=== PATIENT | female | born 1945 | race Caucasian/White ===

== ENCOUNTER 2016-12-06 08:29 | Outpatient (CLI) | payer MEDICARE, BC ==
[~2016-12-06] VITALS: Ht 152.4 cm; Wt 44.5 kg
--- NOTE | ~2016-12-06 | HEMODYNAMI ---
PATIENT:CLARENCE RAMOS MEDICAL RECORD: [id number] : 43 LOCATION:D.CAT ADMISSION DATE: 12/06/16 Generatedon:12/06/201611:31 Patient name: CLARENCE RAMOS Patient #: [id number] SSN: : 1945 Date of study: 12/06/2016 Page: Of Hemodynamic Procedure Report Patient Data Patient Demographics Procedure consent was obtained First Name: CLARENCE Gender: Female Last Name: RICHARD : 1945 Middle Initial: CARLIN Age: 70 year(s) Patient #: [id number] Race: Unknown Additional ID: [id number] Contact details [address]: [address] [place] [address] State: [place] City: [place] Zip code: [address] Past Medical History Allergies Allergen Reaction Date Comments Reported Sulfa drugs 08/05/2015 Other allergy 12/06/2016 Sulfa, Clindamycin Admission Admission Data Admission Date: 12/06/2016 Admission Time: 8:29 Admit Source: Other Height (in.): 60 BSA: 1.38 (m2) Height (cm.): 152.4 BMI: 19.16 (kg/m2) Weight (lbs.): 98.11 Weight (kg.): 44.5 Procedure Procedure Types Cath Procedure Diagnostic Procedure LHC LHC w/Coronaries w/Grafts Miscellaneous Procedures Moderate Sedation up to 15 minutes Procedure Description Procedure Date Procedure Date: 12/06/2016 Procedure Start Time: 11:19 Procedure End Time: 11:27 Procedure Staff Name Function Lamar Torres RT Scrub Ronny Krause MD Performing Physician Fina Estrada RN Nurse Joseph Robins RT Monitor Procedure Data Cath Procedure Fluoroscopy Diagnostic fluoroscopy Total fluoroscopy Time: 1.1 time: 1.1 min min Diagnostic fluoroscopy Total fluoroscopy dose: 125 dose: 125 mGy mGy Contrast Material Contrast Material Type Amount (ml) Isovue 300 51 Entry Location Entry Primary Successful Side Size Upsize Upsize Entry Closure Succes sful Closure Location (Fr) 1 (Fr) 2 (Fr) Remarks Device Remarks Femoral Right 5 Fr Exoseal artery Estimated blood loss: 5 ml Diagnostic catheters Device Type Used For End Catheter Placement Cordis 5Fr Pigtail Procedure Catheter (MP) Cordis 5Fr JL 4.0 Procedure Catheter (MP) Diagnostic Infinity 5Fr Procedure AR 2 MOD catheter Procedure Complications No complications Procedure Medications Medication Administration Route Dosage Oxygen NC 2 l/min Heparin Flush Bag added to field 2 bags (1000units/500ml NS) Lidocaine 2% added to field 20 Fentanyl I.V. 50 mcg Versed I.V. 1 mg Fentanyl I.V. 50 mcg Versed I.V. 1 mg Versed I.V. 0.5 mg Hemodynamics Rest BSA: 1.38 (m2) O2 Consumption: Estimated: 119.26 (ml/min) O2 Consumption indexed : Estimated:86.42 (ml/min/m) Heart Rate: 56 (bpm) Snapshots Pre Cath Intra NCS Post Cath Vital Signs Time Heart Resp SPO2 etCO2 [id number] NIBP Rhythm Pain Sedation Rate (ipm) (%) (mmHg) (mmHg) (mmHg) Status Level (bpm) 11:07:12 57 16 100 0 0 117/64(88) NSR 0 (11) 10(A) , No pain 11:11:22 57 18 100 0 0 119/65(86) NSR 0 (11) 10(A) , No pain 11:15:36 55 17 100 0 0 116/57(86) NSR 0 (11) 10(A) , No pain 11:19:46 66 20 100 0 0 120/63(92) NSR 0 (11) 9(A) , No pain 11:23:58 59 19 100 0 0 125/59(96) NSR 0 (11) 9(A) , No pain Medications Time Medication Route Dose Verified Delivered Reason Notes Effec tiveness by by 10:59:39 Oxygen NC 2 Fina Fina used for l/min Estrada Estrada lacing string cutter RN 10:59:47 Heparin Flush added 2 Fina Fina used for Bag to bags Estrada Estrada procedure (1000units/500ml field RN RN NS) 10:59:56 Lidocaine 2% added 20ml Fina Fina used for to vial Estrada Estrada procedure field RN RN 11:16:36 Fentanyl I.V. 50 Fina Fina for mcg Estrada Estrada sedation RN RN 11:16:42 Versed I.V. 1 mg Fina Fina for Estrada Estrada sedation RN RN 11:18:38 Fentanyl I.V. 50 Fina Fina for mcg Estrada Estrada sedation RN RN 11:18:41 Versed I.V. 1 mg Fina Fina for Estrada Estrada sedation RN RN 11:21:46 Versed I.V. 0.5 Fina Fina for mg Estrada Estrada sedation RN ticker installer Log Time Note 10:40:20 Fina Estrada RN sent for patient. Start room use. 10:43:36 Diagnostic Cath status Elective 10:43:39 Time tracking: Regular hours 10:43:42 Plan of Care:Hemodynamics will remain stable., Cardiac rhythm will remain stable., Comfort level will be maintained., Respiratory function will remain adequate., Patient/ family verbilizes understanding of procedure., Procedure tolerated without complication., Recovers from procedure without complications.. 10:49:46 Patient received from Pre/Post Procedure Room to [facility] 1 Alert and oriented. Tansferred to table in Supine position. 10:49:48 Warm blankets applied, and magno hugger turned on for patient comfort. 10:49:49 Correct patient and procedure confirmed by team. 10:49:50 ECG and BP/O2 sat monitors applied to patient. 10:49:51 Signed procedure consent form obtained from patient. 10:50:00 H&P Date Dictated: 12/01/2016 Emergent; H&P N/A, Within 30 days and on chart.. 10:59:39 Oxygen 2 l/min NC was administered by Fina Estrada RN; used for procedure; 10:59:47 Heparin Flush Bag (1000units/500ml NS) 2 bags added to field was administered by Fina Estrada RN; used for procedure; 10:59:56 Lidocaine 2% 20ml vial added to field was administered by Fina Estrada RN; used for procedure; 11:05:53 Vital chart was started 11:05:54 Baseline sample Acquired. 11:06:01 Rhythm: sinus rhythm 11:06:02 Full Disclosure recording started 11:06:04 Pre-op teaching completed and patient verbalized understanding. 11:06:04 Pre-procedure instructions explained to patient. 11:06:05 Family in waiting room. 11:06:06 Patient NPO since Midnight. 11:06:26 Patient allergic to Other allergySulfa, Clindamycin 11:06:28 Is the patient allergic to Iodine/contrast media? No. 11:06:29 Is patient on blood thinner?Yes 11:06:31 ACC The patient was administered the following blood thiners within the last 24 hours: ACCAspirin, ACCPlavix 11:06:36 Patient diabetic? No. 11:06:39 Previous problem with sedation/anesthesia? No ? 11:06:40 Snore? No 11:06:41 Sleep apnea? No 11:06:42 Deviated septum? No 11:06:43 Opens mouth fully? Yes 11:06:44 Sticks out tongue? Yes 11:06:45 Airway obstruction? No ? 11:06:47 Dentures? No ? 11:06:50 Pre procedure: right dorsailis pedis pulse 2+ Normal; easily identifiable; not easily obliterated 11:06:52 Patient pain scale 0/10 ?. 11:06:56 IV patent on arrival in right hand with 0.9% NaCl at O. 11:07:01 Lab results completed and on chart. 11:07:04 Right groin area was prepped with chlora-prep and draped in sterile fashion 11:07:05 Sharps counted by scrub and verified by R.N. 11:07:05 Alarms reviewed by R. N. 11:07:08 Use device set Femoral Dx 11:07:10 Tegaderm 4 x 4 opened to sterile field. 11:07:11 Bag Decanter opened to sterile field. 11:07:11 Acist Syringe opened to sterile field. 11:07:12 Terumo 5Fr [place] Sheath opened to sterile field. 11:07:12 Medline Cath Pack opened to sterile field. 11:07:13 Diagnostic Infinity 5Fr Multipack catheter opened to sterile field. 11:07:15 Acist Hand Control opened to sterile field. 11:07:15 Acist Manifold opened to sterile field. 11:07:16 St Cole 260cm J .035 wire opened to sterile field. 11:07:23 Physician paged 11:08:24 Zero performed for pressure channel P1 11:11:28 Patient Height : 60 cm 11:11:32 Patient Weight : 98.11 kg 11:11:38 Admit Source: Other 11:15:53 --------ALL STOP TIME OUT------ 11:15:53 Physician arrived 11:15:57 Final Timeout: patient, procedure, and site verified with staff and physician. All members of the team are in agreement. 11:15:58 Right groin site verified by team. 11:16: Physical assessment completed. ASA score P 2 - A patient with mild systemic disease as per Ronny Krause MD. 11:16:04 Sedation plan: IV Moderate Sedation Versed, Fentanyl 11:16:36 Fentanyl 50 mcg I.V. was administered by Fina Estrada RN; for sedation; 11:16:42 Versed 1 mg I.V. was administered by Fina Estrada RN; for sedation; 11:18:38 Fentanyl 50 mcg I.V. was administered by Fina Estrada RN; for sedation; 11:18:41 Versed 1 mg I.V. was administered by Fina Estrada RN; for sedation; 11:19:41 Procedure started. 11:19:46 Local anesthetic to right femoral artery with Lidocaine 2% by Ronny Krause MD.INITIAL ACCESS ONLY 11:19:55 A 5 Fr sheath was inserted into the Right Femoral artery 11:20:01 A Cordis 5Fr Pigtail Catheter (MP) was advanced over the wire and used for Procedure. 11:20:03 LV gram done using MORENO 11:20:07 Injector settings: Ml/sec: 10, Volume: 20, 11:20:13 EF : 60 % 11:20:15 Catheter exchanged over wire. 11:20:21 A Cordis 5Fr JL 4.0 Catheter (MP) was advanced over the wire and used for Procedure. 11:21:32 LCA angiography performed. 11:21:46 Versed 0.5 mg I.V. was administered by Fina Estrada RN; for sedation; 11:22:21 A Diagnostic Infinity 5Fr AR 2 MOD catheter was advanced over the wire and used for Procedure. 11:22:25 RCA angiography performed. 11:22:28 SVG to LAD angiography performed. 11:24:50 Catheter removed. 11:24:56 Cordis 5Fr Exoseal opened to sterile field. 11:25:07 Sheath removed intact; hemostasis achieved with Exoseal to the Right Femoral artery. 11:25:09 Procedure ended.(Physican Out) 11::41 Fluoroscopy time 01.10 minutes. 11::44 Fluoroscopy dose: 125 mGy 11::44 Flurop Dose total: 125 11:25:48 Contrast amount:Isovue 300 51ml. 11:25:50 Sharps counted by scrub and verified by R.N. 11:25:51 Insertion/operative site no bleeding no hematoma. 11:25:53 Post-op/insertion site Right Femoral artery dressed using a 4 x 4 and Tegaderm. 11:25:57 Post right femoral artery:stable, soft, clean and dry 11:25:59 Post Procedure Pulses reassessed and unchanged 11:26:02 Post-procedure physical assessment completed. ASA score P 2 - A patient with mild systemic disease as per Ronny Krause MD. 11:26:05 Post procedure rhythm: unchanged. 11:26:07 Estimated blood loss: 5 ml 11:26:09 Post procedure instruction explained to patient.Patient verbalizes understanding. 11:26:10 Patient needs reinforcement of post procedure teaching. 11:26:49 Procedure type changed to Cath procedure, Diagnostic procedure, LHC, LHC w/Coronaries w/Grafts, Miscellaneous Procedures, Moderate Sedation up to 15 minutes 11:27:11 Procedure and supply charges have been captured, reviewed, submitted and are correct. 11:27:15 Procedure Complication : No complications 11:27:17 Vital chart was stopped 11:27:18 See physician's report for complete and final results. 11:27:19 Report given to Pre/Post Procedure Room. 11:27:22 Patient transfered to Pre/Post Procedure Room with Stretcher. 11:27:24 Full Disclosure recording stopped 11:27:24 Procedure ended. 11:27:28 End room use (Document Last) Device Usage Item Name Manufacture Quantity Catalog Hospital Part Current Minimal Lo t# / Number Charge Number Stock Stock Serial# Code Tegaderm 4 3M 1 [id number] [id number] [id number] 5 x 4 Acist Acist 1 92919 997285 136884 547738 20 Syringe [employer] Inc Bag Microtek 1 2001S 216744 30856 780792 5 Decan[employer] Medline Cardinal 1 [id number] 727826 14714 145685 5 Cath Pack Health Terumo 5Fr Terumo 1 [id number] 613733 225509 680940 40 Lindale Sheath Diagnostic Cardinal 1 [id number] 600216 72677 036697 30 Infinity Health 5Fr Multipack catheter Acist Acist 1 77771 945716 760024 831129 5 Manifold [employer] Inc Acist Hand Acist 1 72178 901340 384239 710515 [address] [facility] [address] Cole 1 867420 515821 692968 860910 30 260cm J .035 wire Cordis 5Fr Cardinal 1 [id number] 5 Pigtail Health Catheter (MP) Cordis 5Fr Cardinal 1 [id number] 5 JL 4.0 Health Catheter (MP) Diagnostic Cardinal 1 [id number] 953266 222792 974970 20 Infinity Health 5Fr AR 2 MOD catheter Cordis 5Fr Cardinal 1 EX500 357325 578789 704538 10 InVisM Signature Audit [place] Stage Time Signature Unsigned Intra-Procedure 12/06/2016 Joseph Robins 11:31:24 AM RT(R) Signatures Monitor : Joseph Robins RT Signature : Date : Time : [place] [id number] [place] [address]
[~2016-12-06 08:29] MED LIST: ARAVA10 MG PO; BAYER CHEWABLE81 MG PO; BENADRYL25 MG PO; BONIVA150 MG PO; CALCI-CHEW1 TAB.CHEW PO; CALCIUM 500 + D1 TAB PO; CO Q-10100 MG PO; COLACE100 MG PO; HYDROCHLOROTHIA25 MG PO; LINZESS145 MCG PO; MEDROL4 MG PO; MULTIPLE VITAMI1 TA1 PO; NORVASC2.5 MG PO; PLAVIX75 MG PO; TENORMIN50 MG PO; ULTRAM50 MG PO; VALTREX500 MG PO; VITAMIN B-12500 MCG PO; VITAMIN D31000 UNI2 PO; VITAMIN D5000 UNIT PO; XANAX0.25 MG PO
[2016-12-06 09:43] VITALS: BP 147/75; Ht 152.4 cm; Wt 44.5 kg
[2016-12-06 10:16] LABS: BASOPHILS 0.2 % (0-2); EOSINOPHILS 0.5 % (0-7); HEMATOCRIT 35.6 % (36.0-48.0); HEMOGLOBIN 11.4 g/dL (12-16); IMMATURE GRANULOCYTES 0.2 % (0-5); LYMPHOCYTES 17.3 % (15-50); MCH 32.5 pg (26.0-34.0); MCV 101.4 fL (80.0-100.0); MEAN PLATELET VOLUME 12.3 fL (7.4-10.4); MONOCYTES 5.6 % (2-11); NEUTROPHILS 76.2 % (40-80); PLATELET COUNT 199 10x3/uL (130-400); RBC 3.51 10x6/uL (4.00-5.40); RDW 14.1 % (11.5-14.5); WBC 6.3 10x3/uL (4.8-10.8)
[2016-12-06 11:08] LABS: CALC OSMOLALITY 284 mosm/kg (275-300); CALCIUM 8.2 mg/dL (8.5-10.1); CARBON DIOXIDE 27.7 mmol/L (21.0-32.0); CHLORIDE - SERUM 106 mmol/L (98-107); CKMB 0.5 U/L (0.0-3.6); CREATINE KINASE 46 UL (21-215); CREATININE - SERUM 1.1 mg/dL (0.6-1.3); GLUCOSE 94 mg/dL (74-106); SODIUM 142 mmol/L (136-145); UREA NITROGEN 18 mg/dL (7-18); eGFR NON AFRICAN AMERICAN 52 mL/min (90-120)
[2016-12-06 11:12] LABS: TROPONIN-I 0.133 ng/mL (0.000-0.060)
--- NOTE | 2016-12-06 12:00 | NUR ---
RIGHT GROIN CDI, NO HEMATOMA OR BLEEDING NOTED, SOFT TO TOUCH, RESTING WITH AT SIDE
--- NOTE | 2016-12-06 12:30 | NUR ---
NO CHANGES IN GROIN, DENIES CHEST PAIN.
--- NOTE | 2016-12-06 14:15 | NUR ---
IV D'C WITH CATH TIP INTACT. UP TO RESTROOM TO VOID. WRITTEN AND VERBAL INSTRUCTIONS GIVEN TO PT AND . DENIES PAIN AT PRESENT. D'C HOME WITH
--- NOTE | 2016-12-08 08:49 | OP ---
PATIENT NAME: CLARENCE RAMOS MEDICAL RECORD: [id number] :43 LOCATION:D.CAT ADMISSION DATE: SURGEON: LILIA DINH MD DATE OF OPERATION: 12/06/2016 PROCEDURES: 1. Left heart catheterization. 2. Selective coronary angiography. 3. Left ventriculogram. 4. Vein graft angiography. INDICATION: Angina and coronary artery disease. PROCEDURE: After informed consent was obtained and after detailed explanation of risks, benefits as well as alternative therapies, the patient elected to proceed with angiogram and heart catheterization. The right femoral area was prepped and draped in normal sterile fashion. The right femoral artery was cannulated via modified Seldinger technique with placement of 6-Rwandan sheath. All catheters exchanged through this sheath. FINDINGS: Left ventriculogram was performed in the standard 30-degree MORENO view reveals good cardiac wall motion throughout all segments. Overall ejection fraction estimated 60%. SELECTIVE CORONARY ANGIOGRAPHY: 1. Left main showed no significant angiographic disease. 2. Left anterior descending is totally occluded in mid vessel. 3. Vein graft to the LAD is widely patent. Distal LAD is widely patent. 4. Left circumflex has moderate irregularities, but no flow-limiting stenosis. 5. The right coronary has previously placed stent. This is widely patent with no significant restenosis. No disease elsewise throughout the RCA or its branches. OVERALL IMPRESSION: Wide patency of the previously placed stents as well as the LAD bypass with preserved left ventricular function. Continue medical management of the coronary artery disease and cardiac risk factors. TRANSINT:[id number] Voice Confirmation ID: [id number] DOCUMENT ID: [id number] LILIA DINH MD at 0849 CC: [id number] DICTATION DATE: 12/06/16 1126 WEB PORTAL DEVELOPER: 12/06/16 2200 DEP CLI 12/06/16 [place] [id number] [place] [id number]
== END 2016-12-06 14:35 | disposition home or self-care (01) ==
LOC: D.CATH 08:29
PROVIDERS: Internal Medicine Interventional Cardiology
DX: I25.119 Atherosclerotic heart disease of native coronary artery with unspecified angina pectoris (principal); Z95.1 Presence of aortocoronary bypass graft; Z95.5 Presence of coronary angioplasty implant and graft; Z01.812 Encounter for preprocedural laboratory examination

== ENCOUNTER → 2017-07-07 12:34 | Outpatient (CLI) | payer MEDICARE, BC ==
[2016-12-06 09:43] VITALS: BMI 19.1
== END | disposition home or self-care (01) ==
LOC: D.US 12:34
DX: I65.23 Occlusion and stenosis of bilateral carotid arteries (principal)

== ENCOUNTER → 2017-09-19 19:44 | Outpatient (CLI) | payer MEDICARE, BC ==
[2016-12-06 09:43] VITALS: BMI 19.1
== END | disposition home or self-care (01) ==
LOC: D.MAMMO 08-18 14:00
DX: Z12.31 Encounter for screening mammogram for malignant neoplasm of breast (principal)

== ENCOUNTER → 2018-06-13 13:33 | Outpatient (CLI) | payer MEDICARE, BC ==
[2016-12-06 09:43] VITALS: BMI 19.1
== END | disposition home or self-care (01) ==
LOC: D.US 13:30
DX: I65.23 Occlusion and stenosis of bilateral carotid arteries (principal)

== ENCOUNTER 2018-08-03 09:18 | Outpatient (CLI) | payer MEDICARE, BC ==
[~2018-08-03] VITALS: Ht 152.4 cm; Wt 45.9 kg
--- NOTE | ~2018-08-03 | HEMODYNAMI ---
PATIENT:CLARENCE OAKES MEDICAL RECORD: [id number] : 43 LOCATION:DR[facility] ADMISSION DATE: 08/03/18 Generatedon:08/03/201813:42 Patient name: CLARENCE OAKES Patient #: [id number] SSN: : 1945 Date of study: 08/03/2018 Page: Of Hemodynamic Procedure Report Patient Data Patient Demographics Procedure consent was obtained First Name: CLARENCE Gender: Female Last Name: VIOLETTE : 1945 [facility] Initial: CARLIN Age: 72 year(s) Patient #: [id number] Race: Unknown Additional ID: [id number] Contact details [address]: [address] [place] [address] State: [place] City: [place] Zip code: [address] Past Medical History Allergies Allergen Reaction Date Comments Reported Sulfa drugs 08/05/2015 Other allergy 12/06/2016 Sulfa, Clindamycin Admission Admission Data Admission Date: 08/03/2018 Admission Time: 9:18 Weight (lbs.): 101.41 Weight (kg.): 46 Lab Results Lab Result Date: 08/03/2018 Lab Result Time: 0:00 Biochemistry Name Units Result Min Max BUN mg/dl 22 --(----)-* 7 18 Creatinine mg/dl 1.2 --(---*)-- 0.6 1.3 CBC Name Units Result Min Max Hemoglobin g/dl 10.3 *-(----)-- 13.5 17.5 Procedure Procedure Types Cath Procedure Diagnostic Procedure LHC LHC w/Coronaries w/Grafts Procedure Description Procedure Date Procedure Date: 08/03/2018 Procedure Start Time: 13:30 Procedure End Time: 13:36 Procedure Staff Name Function Ronny Krause MD Performing Physician Grabiel Cheng RT Monitor Breezy Varela RN Nurse Lamar Torres RT Scrub Aram Xiong RT History Card Clerk Procedure Data Cath Procedure Fluoroscopy Diagnostic fluoroscopy Total fluoroscopy Time: 1.2 time: 1.2 min min Diagnostic fluoroscopy Total fluoroscopy dose: 86 dose: 86 mGy mGy Contrast Material Contrast Material Type Amount (ml) Isovue 300 53 Entry Location Entry Primary Successful Side Size Upsize Upsize Entry Closure Succes sful Closure Location (Fr) 1 (Fr) 2 (Fr) Remarks Device Remarks Femoral Right 6 Fr Exoseal artery Short Estimated blood loss: 10 ml Diagnostic catheters Device Type Used For End Catheter Placement MULTIPACK Pigtail 5 Fr Procedure catheter MULTIPACK JL 4.0 5Fr Procedure catheter MULTIPACK 3DRC 5Fr Procedure catheter Procedure Complications No complications Procedure Medications Medication Administration Route Dosage 0.9% NaCl I.V. 100 ml/hr Oxygen etCO2 Nasal cannula 2 l/min Heparin Flush Bag added to field 2 bags (1000units/500ml NS) Lidocaine 2% added to field 20 Versed I.V. 2 mg Fentanyl I.V. 100 mcg Versed I.V. 2 mg Fentanyl I.V. 100 mcg Hemodynamics Rest HGB: 10.3 (g/dl) Heart Rate: 51 (bpm) Snapshots Pre Cath Intra NCS Post Cath Vital Signs Time Heart Resp SPO2 etCO2 NIBP (mmHg) Rhythm Pain Sedation Rate (ipm) (%) (mmHg) Status Level (bpm) 12:55:26 61 14 100 0 172/78(144) NSR 0 (11) 10(A) , No pain 12:59:45 62 12 100 4.5 123/71(95) NSR 0 (11) 10(A) , No pain 13:04:52 58 11 98 5.3 140/78(105) NSR 0 (11) 10(A) , No pain 13:09:08 59 11 97 6.1 134/63(88) NSR 0 (11) 10(A) , No pain 13:13:20 63 11 97 1.5 123/68(98) NSR 0 (11) 10(A) , No pain 13:17:28 60 11 96 3.8 114/71(86) NSR 0 (11) 10(A) , No pain 13:22:37 61 11 100 5.3 134/65(99) NSR 0 (11) 10(A) , No pain 13:26:51 54 11 100 6.8 141/65(94) NSR 0 (11) 10(A) , No pain 13:31:05 62 12 97 5.3 125/70(97) NSR 0 (11) 10(A) , No pain 13:35:15 61 14 97 1.5 102/65(83) NSR 0 (11) 10(A) , No pain Medications Time Medication Route Dose Verified Delivered Reason Notes Eff ectiveness by by 12:57:52 0.9% NaCl I.V. 100 Breezy Breezy Per ml/hr Avery Varela physician RN RN 12:58:05 Oxygen etCO2 2 Breezy Breezy for low 02 Nasal l/min Lorigan Lorigan sats cannula RN RN 12:58:19 Heparin Flush added 2 Breezy Breezy used for Bag to bags Lorigan Lorigan procedure (1000units/500ml field RN RN NS) 12:58:30 Lidocaine 2% added 20ml Breezy Breezy for local to vial Lorigan Lorigan anesthetic field RN RN 13:26:08 Versed I.V. 2 mg Breezy Breezy for Lorigan Lorigan sedation RN RN 13:26:17 Fentanyl I.V. 100 Breezy Breezy for mcg Lorigan Lorigan sedation RN RN 13:30:30 Versed I.V. 2 mg Breezy Breezy for Lorigan Lorigan sedation RN RN 13:30:36 Fentanyl I.V. 100 Breezy Breezy for mcg Lorigan Lorigan sedation RN concrete block layer Log Time Note 12:31:00 Aram Xiong RT(R) sent for patient. Start room use. 12:31:01 Time tracking: Regular hours (M-F 7:00 - 5:00) 12:31:05 Plan of Care:Hemodynamics will remain stable., Cardiac rhythm will remain stable., Comfort level will be maintained., Respiratory function will remain adequate., Patient/ family verbilizes understanding of procedure., Procedure tolerated without complication., Recovers from procedure without complications.. 12:34:40 Patient Weight : 101.41 lbs 12:34:58 Lab Result : BUN 22 mg/dl 12:34:58 Lab Result : Hemoglobin 10.3 g/dl 12:34:58 Lab Result : Creatinine 1.2 mg/dl 12:43:44 Patient received from Pre/Post Procedure Room to [facility] 3 Alert and oriented. Tansferred to table in Supine position. 12:43:45 Warm blankets applied, and magno hugger turned on for patient comfort. 12:43:45 Correct patient and procedure confirmed by team. 12:43:46 Signed procedure consent form obtained from patient. 12:43:47 ECG and BP/O2 sat monitors applied to patient. 12:43:48 Full Disclosure recording started 12:54:13 Vital chart was started 12:54:16 Baseline sample Acquired. 12:54:22 Rhythm: sinus rhythm 12:54:33 H&P Date Dictated: 08/01/2018 Within 30 days and on chart., H&P Addendum completed by physician on day of procedure. (MUST COMPLETE FOR ALL OUTPATIENTS). 12:54:51 Pre-procedure instructions explained to patient. 12:54:52 Pre-op teaching completed and patient verbalized understanding. 12:54:56 Family in waiting room. 12:54:58 Patient NPO since Midnight. 12:55:00 Is the patient allergic to Iodine/contrast media? No. 12:55:03 Is patient on blood thinner?No 12:55:22 Last dose of Plavix was 07/31/17. 12:55:26 Patient diabetic? No. 12:55:29 Previous problem with sedation/anesthesia? No ? 12:55:31 Snore? No 12:55:32 Sleep apnea? No 12:55:33 Deviated septum? No 12:55:34 Opens mouth fully? Yes 12:55:35 Sticks out tongue? Yes 12:55:37 Airway obstruction? No ? 12:55:39 Dentures? No ? 12:55:42 Pre procedure: right dorsailis pedis pulse 1+ Palpable, but thready & weak; easily obliterated 12:55:44 Patient pain scale 0/10 ?. 12:55:51 IV patent on arrival in left forearm with 0.9% NaCl at O. 12:55:52 Lab results completed and on chart. 12:55:56 Right groin area was prepped with chlora-prep and draped in sterile fashion 12:56:18 Alarms reviewed by R. N. 12:56:19 Sharps counted by scrub and verified by R.N. 12:56:24 Use device set Femoral Dx 12:56:25 Tegaderm 4 x 4 (1626W) opened to sterile field. 12:56:26 ACIST Manifold (13952) opened to sterile field. 12:56:28 ACIST Hand Control (00268) opened to sterile field. 12:56:29 ACIST Syringe (64599) opened to sterile field. 12:56:29 Bag Decanter (2002S) opened to sterile field. 12:56:30 Medline Cath Pack ([id number]) opened to sterile field. 12:56:30 DIAGNOSTIC WIRE .035 260cm J wire (331834) opened to sterile field. 12:56:31 DIAGNOSTIC Multipack 5Fr catheter set (ZE4992) opened to sterile field. 12:56:33 SHEATH 5FR [place] (MTG146) opened to sterile field. 12:57:52 0.9% NaCl 100 ml/hr I.V. was administered by Breezy Varela RN; Per physician; 12:58:05 Oxygen 2 l/min etCO2 Nasal cannula was administered by Breezy Varela RN; for low 02 sats; 12:58:19 Heparin Flush Bag (1000units/500ml NS) 2 bags added to field was administered by Breezy Varela RN; used for procedure; 12:58:30 Lidocaine 2% 20ml vial added to field was administered by Breezy Varela RN; for local anesthetic; 13:05:55 Baseline sample Acquired. 13:23:57 --------ALL STOP TIME OUT------ 13:23:57 Final Timeout: patient, procedure, and site verified with staff and physician. All members of the team are in agreement. 13:24:01 Right groin site verified by team. 13:24:06 Fire Safety Assessment: A--An alcohol-based skin anteseptic being used preoperatively., C--Open oxygen or nitrous oxide is being used., D--An ESU, laser, or fiber-optic light is being used. 13:24:10 Physical assessment completed. ASA score P 2 - A patient with mild systemic disease as per Ronny Krause MD. 13:24:13 Sedation plan: IV Moderate Sedation Medication:Versed, Fentanyl 13:26:08 Versed 2 mg I.V. was administered by Breezy Varela RN; for sedation; 13:26:17 Fentanyl 100 mcg I.V. was administered by Breezy Varela RN; for sedation; 13:30:30 Versed 2 mg I.V. was administered by Breezy Varela RN; for sedation; 13:30:36 Fentanyl 100 mcg I.V. was administered by Breezy Varela RN; for sedation; 13:30:49 Procedure started. 13:30:57 Local anesthetic to right radial artery with Lidocaine 2% by Ronny Krause MD.INITIAL ACCESS ONLY 13:31:19 A 6 Fr Short sheath was inserted into the Right Femoral artery 13:31:27 A MULTIPACK Pigtail 5 Fr catheter was advanced over the wire and used for Procedure. 13:31:48 LV angiography performed. 13:31:49 LV gram done using MORENO 13:31:59 EF : 70 % 13:32:04 Injector settings: Ml/sec: 7, Volume: 15, 13:32:17 Catheter removed. 13:32:22 A MULTIPACK JL 4.0 5Fr catheter was advanced over the wire and used for Procedure. 13:33:32 LCA angiography performed. 13:33:39 Catheter removed. 13:34:27 A MULTIPACK 3DRC 5Fr catheter was advanced over the wire and used for Procedure. 13:34:45 RCA angiography performed. 13:34:52 SVG to LAD angiography performed. 13:34:53 Catheter removed. 13:34:55 EXOSEAL 5Fr (EX500) opened to sterile field. 13:35:11 Sheath removed intact; hemostasis achieved with Exoseal to the Right Femoral artery. 13:35:13 Procedure ended.(Physican Out) 13:35:28 Fluoroscopy time 01.20 minutes. 13:35:34 Fluoroscopy dose: 86 mGy 13:35:34 Flurop Dose total: 86 13:35:39 Contrast amount:Isovue 300 53ml. 13:35:40 Sharps counted by scrub and verified by R.N. 13:35:42 Insertion/operative site no bleeding no hematoma. 13:35:45 Post-op/insertion site Right Femoral artery dressed using a 4 x 4 and Tegaderm. 13:35:46 Post Procedure Pulses reassessed and unchanged 13:35:48 Post-procedure physical assessment completed. ASA score P 2 - A patient with mild systemic disease as per Ronny Krause MD. 13:35:51 Post procedure rhythm: unchanged. 13:35:54 Estimated blood loss: 10 ml 13:35:55 Post procedure instruction explained to patient.Patient verbalizes understanding. 13:35:56 Patient needs reinforcement of post procedure teaching. 13:36:03 Procedure and supply charges have been captured, reviewed, submitted and are correct. 13:36:06 Procedure Complication : No complications 13:36:24 Vital chart was stopped 13:36:24 See physician's report for complete and final results. 13:36:26 Report given to Pre/Post Procedure Room. 13:36:30 Patient transfered to Pre/Post Procedure Room with Stretcher. 13:36:32 Procedure ended. 13:36:32 Full Disclosure recording stopped 13:40:21 End room use (Document Last) Device Usage Item Name Manufacture Quantity Catalog Hospital Part Current Minimal L ot# / Number Charge Number Stock Stock Serial# Code Tegaderm 4 3M 1 1626W [id number] 680164 705937 5 x 4 (1626W) ACIST Acist 1 91432 587461 777960 177888 5 Manifold Medical (38503) Systems Inc ACIST Hand Acist 1 53888 441270 255526 572817 5 Control Medical (87518) Systems Inc ACIST Acist 1 30615 771127 519593 011483 20 Syringe Medical (81670) Systems Inc Bag Microtek 1 2001S 393754 75544 081168 5 Decanter Medical Inc. () Medline Medline 1 [id number] 766334 77963 534818 5 Cath Pack ([id number]) DIAGNOSTIC [facility] 1 444142 166238 987286 891780 30 WIRE .035 260cm J wire (224505) DIAGNOSTIC Cardinal 1 IP8009 184327 18941 451185 30 Multipack Health 5Fr catheter set (LM1927) SHEATH 5FR Terumo 1 ICR547 698060 126969 377508 5 [place] (WRK362) MULTIPACK Cardinal 1 566896 5 Pigtail 5 Health Fr catheter MULTIPACK Cardinal 1 352275 5 JL 4.0 5Fr Health catheter MULTIPACK Cardinal 1 178218 5 3DRC 5Fr Health catheter EXOSEAL 5Fr Cardinal 1 EX500 077483 227738 145377 10 (EX500) Health Signature Audit [place] Stage Time Signature Unsigned Intra-Procedure 08/03/2018 Grabiel Cheng 1:42:01 PM RT(R) Signatures Monitor : Grabiel Cheng RT Signature : Date : Time : [address] [place] [address]
[2018-08-03] MEDS ORDERED: VITAMIN D250000 UNIT PO (10:17)
[2018-08-03] MEDS ORDERED: HYDROCODON-ACET15 ML PO (10:18)
[2018-08-03] MEDS ORDERED: VALTREX500 MG PO (10:19)
[2018-08-03 10:32] VITALS: BP 153/77; Ht 152.4 cm; Wt 45.9 kg
[2018-08-03 10:45] LABS: BASOPHILS 0.2 % (0-2); EOSINOPHILS 0.8 % (0-7); HEMATOCRIT 32.3 % (36.0-48.0); HEMOGLOBIN 10.3 g/dL (12-16); IMMATURE GRANULOCYTES 0.2 % (0-5); LYMPHOCYTES 27.7 % (15-50); MCH 32.8 pg (26.0-34.0); MCHC 31.9 g/dL (31.0-37.0); MCV 102.9 fL (80.0-100.0); MEAN PLATELET VOLUME 11.1 fL (7.4-10.4); MONOCYTES 9.4 % (2-11); NEUTROPHILS 61.7 % (40-80); RBC 3.14 10x6/uL (4.00-5.40); RDW 14.7 % (11.5-14.5); WBC 4.8 10x3/uL (4.8-10.8)
[2018-08-03 10:58] LABS: ANION GAP 15.6 mmol/L (8-16); CALCIUM 8.4 mg/dL (8.5-10.1); CARBON DIOXIDE 23.8 mmol/L (21.0-32.0); CREATININE - SERUM 1.2 mg/dL (0.6-1.3); POTASSIUM - SERUM 3.4 mmol/L (3.5-5.1)
[2018-08-03 11:21] LABS: PLATELET COUNT 242 10x3/uL (130-400)
--- NOTE | 2018-08-03 14:00 | NUR ---
PATIENT RESTING, VSS ON 2L NC. RIGHT GROIN DRESSING IS CDI, NO S/S OF BLEEDING OR HEMATOMA. NO C/O PAIN, NUMBNESS, OR TINGLING. AT BEDSIDE.
--- NOTE | 2018-08-03 14:30 | NUR ---
PATIENT AWAKE, HEAD OF BED ELEVATED TO 30 DEGREES. RIGHT GROIN DRESSING IS CDI,NO S/S OF BLEEDING OR HEMATOMA. PATIENT DRINKING WATER, EATING FANNY CRACKERS. NO N/V.
--- NOTE | 2018-08-03 15:00 | NUR ---
HEAD OF BED ELEVATED TO 90 DEGREES. RIGHT GROIN DRESSING IS CDI, NO S/S OF BLEEDING OR HEMATOMA. NO C/O PAIN, NUMBNESS, OR TINGLING. PHYSICIAN AT BEDSIDE TO UPDATE PATIENT AND FAMILY.
--- NOTE | 2018-08-03 15:30 | NUR ---
EDUCATION REGARDING DISCHARGE INSTRUCTIONS AND MEDICATIONS GIVEN TO PATIENT AND SPOUSE, ALL QUESTIONS ANSWERED. IV REMOVED.
--- NOTE | 2018-08-03 15:45 | NUR ---
PATIENT TAKEN VIA WHEELCHAIR TO BATHROOM, VOIDED WITHOUT DIFFICULTY. TRANSPORTED TO CAR WITH SPOUSE DRIVING, ALL BELONGINGS WITH PATIENT.
--- NOTE | 2018-08-07 10:45 | OP ---
PATIENT NAME: CLARENCE OAKES MEDICAL RECORD: [id number] :43 LOCATION:D.CAT ADMISSION DATE: SURGEON: LILIA DINH MD DATE OF OPERATION: 08/03/2018 DATE OF SERVICE: 08/03/2018 PROCEDURES: 1. Left heart catheterization. 2. Selective coronary angiography. 3. Left ventriculogram. 4. HODGES angiography. INDICATION: Angina and coronary artery disease. DESCRIPTION OF PROCEDURE: After informed consent was obtained and after a detailed description of risks, benefits as well as alternative therapies, the patient elected to proceed with angiogram and heart catheterization. The right femoral area was prepped and draped in normal sterile fashion. Right femoral artery was cannulated via modified Seldinger technique with placement of 5-[place] sheath. All catheters exchanged through this sheath. FINDINGS: The left ventriculogram was performed in standard 30-degree MORENO view, reveals good cardiac wall motion throughout all segments, overall ejection fraction estimated at 70%. SELECTIVE CORONARY ANGIOGRAPHY: 1. Left main is with no significant angiographic disease. 2. Left anterior descending has a high-grade stenosis proximally. 3. HODGES to the LAD is widely patent. Distal LAD is widely patent. 4. Left circumflex has moderate irregularities, but no flow-limiting stenosis. 5. Right coronary has moderate irregularities, but no flow-limiting stenosis. OVERALL IMPRESSION: Wide patency of the left internal mammary artery to the left anterior descending. No new disease elsewise. Continue medical management of the coronary artery disease and cardiac risk factors. TRANSINT:[id number] Voice Confirmation ID: [id number] DOCUMENT ID: [id number] LILIA DINH MD at 1045 CC: [id number] DICTATION DATE: 08/03/18 1345 FEATHER EDGER: 08/03/18 1627 DEP CLI 08/03/18 [place] [id number]
== END 2018-08-03 15:45 ==
LOC: D.CATH 09:18
PROVIDERS: Internal Medicine Interventional Cardiology
DX: I25.119 Atherosclerotic heart disease of native coronary artery with unspecified angina pectoris (principal); Z95.1 Presence of aortocoronary bypass graft; Z01.812 Encounter for preprocedural laboratory examination

== ENCOUNTER 2018-10-11 13:29 | Observation (INO) | payer MEDICARE, BC ==
[~2018-10-11] VITALS: Ht 152.4 cm; Wt 45.0 kg
[2018-10-11] VITALS (7 sets, daily range): BP systolic 107–147; BP diastolic 68–100; Ht 152.4 cm; Wt 45.0 kg
--- NOTE | ~2018-10-11 | HEMODYNAMI ---
PATIENT:CLARENCE OAKES MEDICAL RECORD: [id number] : 43 [id number] ADMISSION DATE: 10/11/18 Generatedon:10/12/201810:48 Patient name: CLARENCE OAKES Patient #: [id number] SSN: : 1945 Date of study: 10/12/2018 Page: Of Hemodynamic Procedure Report Patient Data Patient Demographics Procedure consent was obtained First Name: CLARENCE Gender: Female Last Name: VIOLETTE : 1945 [facility] Initial: CARLIN Age: 72 year(s) Patient #: [id number] Race: Unknown Additional ID: [id number] Contact details [address]: [address] [place] [address] State: [place] City: [place] Zip code: [address] Past Medical History Allergies Allergen Reaction Date Comments Reported Sulfa drugs 08/05/2015 Other allergy 12/06/2016 Sulfa, Clindamycin Other allergy 10/12/2018 CLINDAMYCIN,SULFA Admission Admission Data Admission Date: 10/11/2018 Admission Time: 15:22 Room #: D.2120 Procedure Procedure Types Cath Procedure Peripheral Cath Diagnostic Procedure Repairer Wood Furniture Peripheral Procedures Nsemt-Pqddkdw-Ybr-Off Peripheral vascular Intervention Stent Stent- Tib/Per w/ather w/plasty Initial Procedure Description Procedure Date Procedure Date: 10/12/2018 Procedure Start Time: 10:14 Procedure End Time: 10:48 Procedure Staff Name Function Ronny Krause MD Performing Physician Padma Melton RN Nurse Lamar Torres RT Scrub Albertina Gottlieb RT Monitor Procedure Data Cath Procedure Fluoroscopy Diagnostic fluoroscopy Total fluoroscopy Time: 7.3 time: 7.3 min min Diagnostic fluoroscopy Total fluoroscopy dose: 67 dose: 67 mGy mGy Contrast Material Contrast Material Type Amount (ml) Isovue 300 139 Entry Location Entry Primary Successful Side Size Upsize Upsize Entry Closure Succes sful Closure Location (Fr) 1 (Fr) 2 (Fr) Remarks Device Remarks Femoral Right 5 Fr 6 Fr Exoseal artery Long Estimated blood loss: 10 ml Diagnostic catheters Device Type Used For End Catheter Placement DIAGNOSTIC UF 5Fr Procedure catheter ([id number]) Procedure Complications No complications Procedure Medications Medication Administration Route Dosage 0.9% NaCl I.V. 100 ml/hr Oxygen etCO2 Nasal cannula 2 l/min Lidocaine 2% added to field 20 Heparin Flush Bag added to field 2 bags (1000units/500ml NS) Versed I.V. 2 mg Fentanyl I.V. 50 mcg Heparin Bolus I.V. 5000 units Versed I.V. 2 mg Fentanyl I.V. 50 mcg Fentanyl I.V. 100 mcg Nitroglycerin IC/IA I.A. 1000 mcg Nitroglycerin IC/IA I.A. 1000 mcg Nitroglycerin IC/IA I.A. 700 mcg Hemodynamics Rest Heart Rate: 57 (bpm) Snapshots Pre Cath Intra NCS Post Cath Vital Signs Time Heart Resp SPO2 etCO2 NIBP (mmHg) Rhythm Pain Sedation Rate (ipm) (%) (mmHg) Status Level (bpm) 10:01:07 55 15 100 26.1 178/82(131) SB 0 (11) 10(A) , No pain 10:05:33 57 16 100 26.8 179/82(104) SB 0 (11) 10(A) , No pain 10:09:55 53 16 100 26.8 138/67(80) SB 0 (11) 10(A) , No pain 10:14:11 56 12 100 29.1 131/68(106) SB 0 (11) 10(A) , No pain 10:18:27 56 13 100 11.9 143/62(111) SB 0 (11) 10(A) , No pain 10:22:45 57 13 100 10.4 126/65(95) SB 0 (11) 10(A) , No pain 10:26:57 57 14 100 14.2 124/66(88) SB 0 (11) 9(A) , No pain 10:31:09 52 11 100 17.1 123/63(91) SB 0 (11) 9(A) , No pain 10:35:21 58 11 100 28.4 105/54(83) SB 0 (11) 9(A) , No pain 10:39:31 59 10 100 32.8 113/48(68) SB 0 (11) 10(A) , No pain 10:44:30 60 12 100 30.6 Measuring SB 0 (11) 10(A) , No pain 10:44:40 60 12 100 30.6 138/64(102) SB 0 (11) 10(A) , No pain Medications Time Medication Route Dose Verified Delivered Reason Notes Effectiveness by by 10:07:07 0.9% NaCl I.V. 100 Ronny Padma used for ml/hr Jimi Melton cafeteria operator 10:07:14 Oxygen etCO2 2 Ronny Padma used for Nasal l/min Jimi Melton procedure cannula RN 10:07:18 Lidocaine 2% added 20ml Ronny Ronny for local to vial Jimi Krause MD anesthetic field 10:07:23 Heparin Flush added 2 Ronny Ronny used for Bag to bags Jimi Krause MD procedure (1000units/500ml field NS) 10:13:36 Versed I.V. 2 mg Ronny Padma for sedation Jimi Melton RN 10:13:42 Fentanyl I.V. 50 Ronny Padma for sedation mcg Jimi Melton RN 10:20:39 Heparin Bolus I.V. 5000 Ronny Padma for verif ied units Jimi Melton anticoagulation with Dr. MARBELLA Krause 10:20:53 Versed I.V. 2 mg Ronny Padma for sedation Jimi Melton RN 10:20:56 Fentanyl I.V. 50 Ronny Padma for sedation mcg Jimi Melton RN 10:24:56 Fentanyl I.V. 100 Ronny Padma for sedation mcg Jimi Melton RN 10:30:37 Nitroglycerin I.A. 1000 Ronny Ronny for IC/IA mcg Jimi Krause MD vasodilation 10:33:53 Nitroglycerin I.A. 1000 Ronny Ronny for IC/IA mcg Jimi Krause MD vasodilation 10:37:21 Nitroglycerin I.A. 700 Ronny Ronny for IC/IA mcg Jimi Krause MD vasodilation Procedure Log Time Note 9:46:22 Time tracking: Regular hours (M-F 7:00 - 5:00) 9:46:26 Plan of Care:Hemodynamics will remain stable., Cardiac rhythm will remain stable., Comfort level will be maintained., Respiratory function will remain adequate., Patient/ family verbilizes understanding of procedure., Procedure tolerated without complication., Recovers from procedure without complications.. 9:46:28 Padma Melton RN sent for patient. Start room use. 9:53:16 Patient received from PCU to CCL 1 Alert and oriented. Tansferred to table in Supine position. 9:53:17 Warm blankets applied, and magno hugger turned on for patient comfort. 9:53:17 Correct patient and procedure confirmed by team. 9:53:18 Signed procedure consent form obtained from patient. 9:53:19 ECG and BP/O2 sat monitors applied to patient. 9:53:20 Full Disclosure recording started 9:55:14 H&P Date Dictated: 10/10/2018 Within 30 days and on chart.. 9:55:26 Patient NPO since Midnight. 9:55:31 Pre-procedure instructions explained to patient. 9:55:31 Pre-op teaching completed and patient verbalized understanding. 9:55:33 Family in patients room. 9:56:00 Patient allergic to Other allergyCLINDAMYCIN,SULFA 9:56:02 Is the patient allergic to Iodine/contrast media? No. 9:56:23 Is patient on blood thinner?Yes 9:56:26 ACC The patient was administered the following blood thiners within the last 24 hours: ACCPlavix, ACCHeparin 9:56:30 Patient diabetic? No. 9:56:35 Previous problem with sedation/anesthesia? No ? 9:56:37 Snore? No 9:56:38 Sleep apnea? No 9:56:39 Deviated septum? No 9:56:39 Opens mouth fully? Yes 9:56:40 Sticks out tongue? Yes 9:56:42 Airway obstruction? No ? 9:56:44 Dentures? No ? 9:56:47 Pre procedure: left dorsailis pedis pulse 1+ Palpable, but thready & weak; easily obliterated 9:56:50 Pre procedure: right dorsailis pedis pulse 2+ Normal; easily identifiable; not easily obliterated 9:56:58 IV patent on arrival in right hand with 0.9% NaCl at KVO. 9:58:03 Lab Result : Creatinine 1.2 mg/dl 9:58:03 Lab Result : BUN 20 mg/dl 9:58:03 Lab Result : Hematocrit 35.6 % 9:58:03 Lab Result : Hemoglobin 11.8 g/dl 9:58:10 Lab results completed and on chart. 9:58:15 Bilateral groins area was prepped with chlora-prep and draped in sterile fashion 9:58:16 Alarms reviewed by R. N. 9:58:16 Sharps counted by scrub and verified by R.N. 9:58:19 ACIST Syringe (49290) opened to sterile field. 9:58:19 Bag Decanter (2002S) opened to sterile field. 9:58:20 Medline Cath Pack ([id number]) opened to sterile field. 9:58:21 DIAGNOSTIC WIRE .035 260cm J wire (553230) opened to sterile field. 9:58:22 ACIST Hand Control (14273) opened to sterile field. 9:58:22 ACIST Manifold (88179) opened to sterile field. 9:58:23 Tegaderm 4 x 4 (1626W) opened to sterile field. 9:58:24 SHEATH 5FR Camden (PQR312) opened to sterile field. 9:58:54 Vital chart was started 10:03:44 Baseline sample Acquired. 10:03:48 Rhythm: sinus bradycardia 10:07:07 0.9% NaCl 100 ml/hr I.V. was administered by Padma Melton RN; used for procedure; 10:07:14 Oxygen 2 l/min etCO2 Nasal cannula was administered by Padma Melton RN; used for procedure; 10:07:18 Lidocaine 2% 20ml vial added to field was administered by Ronny Krause MD; for local anesthetic; 10:07:23 Heparin Flush Bag (1000units/500ml NS) 2 bags added to field was administered by Ronny Krause MD; used for procedure; 10:10:52 Zero performed for pressure channel P1 10:11:50 --------ALL STOP TIME OUT------ 10:11:51 Final Timeout: patient, procedure, and site verified with staff and physician. All members of the team are in agreement. 10:11:53 Bilateral groins site verified by team. 10:11:55 Maximum allowable Isovue 300 dose 300ml. Physician notified. (300ml for normal creatinines. For patients with creatinine of 1.7 or higher multiply weight(kg) x 5 divided by creatinine.) 10:11:59 Fire Safety Assessment: A--An alcohol-based skin anteseptic being used preoperatively., C--Open oxygen or nitrous oxide is being used., D--An ESU, laser, or fiber-optic light is being used. 10:12:02 Physical assessment completed. ASA score P 2 - A patient with mild systemic disease as per Ronny Krause MD. 10:12:05 Sedation plan: IV Moderate Sedation Medication:Versed, Fentanyl 10:13:36 Versed 2 mg I.V. was administered by Padma Melton RN; for sedation; 10:13:42 Fentanyl 50 mcg I.V. was administered by Padma Melton RN; for sedation; 10:14:26 Procedure started. 10:14:42 Local anesthetic to right femoral artery with Lidocaine 2% by Ronny Krause MD.INITIAL ACCESS ONLY 10:15:16 A 5 Fr sheath was inserted into the Right Femoral artery 10:15:28 A DIAGNOSTIC UF 5Fr catheter ([id number]) was advanced over the wire and used for Procedure. 10:16:08 Abdominal angiogram w/ runoff was performed. 10:16:10 Right leg runoff performed. 10:16:39 Left leg runoff performed. 10:18:45 GLIDE WIRE Super Stiff Angled 260cm (YL6985) opened to sterile field. 10:18:55 SHEATH 6FR Destination (RSR01) opened to sterile field. 10:18:55 INFLATOR Merit BasixCompak (NY2928) opened to sterile field. 10:19:15 GLIDE WIRE ADVANCED AROUND THE HORN 10:19:21 Catheter exchanged over wire. 10:19:29 Sheath upsized to a 6 Fr Long. 10:19:49 DESTINATION SHEATH AROUND THE HORN 10:20:18 CHOICE PT Extra Support J 300cm guide wire ([id number]) opened to sterile field. 10:20:39 Heparin Bolus 5000 units I.V. was administered by Padma Melton RN; for anticoagulation; verified with Dr. Krause 10:20:45 CHOICE ES 300 wire advanced. 10:20:47 Wire advanced across lesion. 10:20:53 Versed 2 mg I.V. was administered by Padma Melton RN; for sedation; 10:20:56 Fentanyl 50 mcg I.V. was administered by Padma Melton RN; for sedation; 10:22:47 LASER ELCA 0.9 Rx atherectomy catheter (955664) opened to sterile field. 10:23:17 Laser pass to Left Peroneal with Fluence of 80 and Rate of 40. 10:24:56 Fentanyl 100 mcg I.V. was administered by Padma Melton RN; for sedation; 10:26:35 Laser catheter removed. 10:26:36 Laser total treatment time: 0 minutes 59 seconds 10::36 Laser total pulses delivered: 2380 10:28:00 Inflate balloon Inflation number: 1 A EUPHORA 3.0 x 20 Balloon ([id number]) was prepped and advanced across the Proximal Peroneal, Left, then inflated to 13 DAYANNA for 0:10 (min:sec). 10:28:11 Inflation number: 2 The EUPHORA 3.0 x 20 Balloon ([id number]) was reinflated across the Proximal Peroneal, Left, to 13 DAYANNA for 0:10 (min:sec). 10:29:06 Inflation number: 3 The EUPHORA 3.0 x 20 Balloon ([id number]) was reinflated across the Proximal Peroneal, Left, to 13 DAYANNA for 0:10 (min:sec). 10:29:59 Inflation number: 4 The EUPHORA 3.0 x 20 Balloon ([id number]) was reinflated across the Proximal Peroneal, Left, to 11 DAYANNA for 0:10 (min:sec). 10:30:12 Inflation number: 5 The EUPHORA 3.0 x 20 Balloon ([id number]) was reinflated across the Proximal Peroneal, Left, to 7 DAYANNA for 0:10 (min:sec). 10:30:30 Balloon removed over the wire. 10:30:37 Nitroglycerin IC/IA 1000 mcg I.A. was administered by Ronny Krause MD; for vasodilation; 10:33:53 Nitroglycerin IC/IA 1000 mcg I.A. was administered by Ronny Krause MD; for vasodilation; 10:35:58 Inflate balloon Inflation number: 6 A SABER 3.0 X 100 X 150 balloon ([id number]) was prepped and advanced across the Proximal Peroneal, Left, then inflated to 7 DAYANNA for 0:10 (min:sec). 10:36:46 Balloon removed over the wire. 10:37:21 Nitroglycerin IC/IA 700 mcg I.A. was administered by Ronny Krause MD; for vasodilation; 10:39:02 SHEATH 6FR Camden (YDA310) opened to sterile field. 10:39:28 LONG SHEATH EXCHANGED FOR SHORT SHEATH 10:40:01 EXOSEAL 6Fr (EX600) opened to sterile field. 10:40:20 Sheath removed intact; hemostasis achieved with Exoseal to the Right Femoral artery. 10:40:33 Procedure ended.(Physican Out) 10:40:54 Fluoroscopy time 07.30 minutes. 10:40:59 Flurop Dose total: 67 10:40:59 Fluoroscopy dose: 67 mGy 10:41:03 Contrast amount:Isovue 300 139ml. 10:41:05 Sharps counted by scrub and verified by R.N. 10:41:07 Post-op/insertion site Right Femoral artery dressed using a 4 x 4 and Tegaderm. 10:41:09 Post-procedure physical assessment completed. ASA score P 2 - A patient with mild systemic disease as per Ronny Krause MD. 10:42:40 Post procedure rhythm: unchanged. 10:42:42 Estimated blood loss: 10 ml 10:42:43 Post procedure instruction explained to patient.Patient verbalizes understanding. 10:42:43 Patient needs reinforcement of post procedure teaching. 10:44:06 Procedure type changed to Cath procedure, Peripheral Cath Diagnostic Procedure, Repairer Wood Furniture Peripheral Procedures, Teaxy-Barnakx-Ynn-Off, Peripheral vascular Intervention, Stent, Stent- Tib/Per w/ather w/plasty Initial 10:44:57 Procedure and supply charges have been captured, reviewed, submitted and are correct. 10:45:31 Procedure Complication : No complications 10:48:00 Vital chart was stopped 10:48:02 See physician's report for complete and final results. 10:48:05 Report given to Med II. 10:48:07 Patient transfered to [facility] II with Bed. 10:48:08 Procedure ended. 10:48:08 Full Disclosure recording stopped 10:48:11 End room use (Document Last) Intervention Summary Intervention Notes Time ActionType Lesion and Equipment Action# Pressure Duration Attributes Used 10:28:00 Inflate Proximal EUPHORA 3.0 1 13 00:10 balloon Peroneal, x 20 Left Balloon ([id number]) 10:28:11 Reinflate Proximal EUPHORA 3.0 2 13 00:10 balloon Peroneal, x 20 Left Balloon ([id number]) 10:29:06 Reinflate Proximal EUPHORA 3.0 3 13 00:10 balloon Peroneal, x 20 Left Balloon ([id number]) 10:29:59 Reinflate Proximal EUPHORA 3.0 4 11 00:10 balloon Peroneal, x 20 Left Balloon ([id number]) 10:30:12 Reinflate Proximal EUPHORA 3.0 5 7 00:10 balloon Peroneal, x 20 Left Balloon ([id number]) 10:35:58 Inflate Proximal SABER 3.0 X 6 7 00:10 balloon Peroneal, 100 X 150 Left balloon ([id number]) Device Usage Item Name Manufacture Quantity Catalog Number Hospital Part Current Minim al Lot# / Charge Number Stock Stock Serial# Code ACIST Acist 1 54917 470971 013640 916653 20 Syringe Medical (25916) Systems Inc Bag Microtek 1 2001S 603254 88253 565648 5 Decanter Medical Inc. () Medline Medline 1 [id number] 513018 77878 882301 5 Cath Pack ([id number]) DIAGNOSTIC St Cole 1 306022 156847 070608 556243 30 WIRE .035 260cm J wire (795286) ACIST Hand Acist 1 85299 215191 293416 843008 5 Control Medical (88288) Systems Inc ACIST Acist 1 22884 667396 997947 990858 5 Manifold Medical (74745) Systems Inc Tegaderm 4 3M 1 1626W 821288 560810 852599 5 x 4 (1626W) SHEATH 5FR Terumo 1 YUM578 911097 585198 074667 5 Camden (VXX620) DIAGNOSTIC Cardinal 1 094801J5 997875 130732 308138 10 UF 5Fr Health catheter (941654V9) GLIDE WIRE Terumo 1 AY6909 343632 323799 401592 5 Super Stiff Angled 260cm (II8841) SHEATH 6FR Terumo 1 RSR01 867775 86069 687875 5 Destination (RSR01) INFLATOR Merit 1 AT3472 201173 957227 384000 15 [facility] Medical BasixCompak (LR5734) CHOICE PT Weed 1 [id number] 085416 780429 685541 5 Extra Scientific Support J 300cm guide wire (0910828W4) LASER ELCA Megan 1 110-004 772157 111420 864234 5 0.9 Rx Healthcare atherectomy (386862) catheter (395430) EUPHORA 3.0 Medtronic 1 [id number] 652175 802118 095250 5 [id number] x 20 Balloon ([id number]) SABER 3.0 X Cardinal 1 [id number] 830201 018064 5 100 X 150 Health balloon (19926659A) SHEATH 6FR Terumo 1 TWW531 942449 222517 631715 40 Camden (BHJ590) EXOSEAL 6Fr Cardinal 1 EX600 120312 429753 373035 10 (EX600) Health Signature Audit Merrill Stage Time Signature Unsigned Intra-Procedure 10/12/2018 Albertina Gottlieb 10:48:22 AM RT(R) Signatures Monitor : Albertina Gottlieb Signature : RT Date : Time : [id number] [place] [address]
--- NOTE | ~2018-10-11 | HP ---
PATIENT: CLARENCE OAKES MEDICAL RECORD: [id number] ACCOUNT: [id number] LOCATION:[facility] : 43 ADMISSION DATE: 10/11/18 PCP: LIAM PEREZ MD HISTORY AND PHYSICAL EXAMINATION DIAGNOSES: 1. Acute arterial occlusion of left lower extremity. 2. Embolic event from atrial fibrillation. 3. Atrial fibrillation. 4. Coronary artery disease. 5. Hypertension. HISTORY: Mrs. Oakes presented to our office yesterday with atrial fibrillation. She was started on Xarelto. We are planning transesophageal echo and cardioversion if no left atrial clot was present. She today complains of acute coolness and " feeling of her left lower extremity to mid calf." It is acutely cool but not bluish or discolored at this time. Most likely, she had an embolic event from atrial fibrillation. Heart rate is still in 130s. PHYSICAL EXAMINATION: GENERAL APPEARANCE: Well-nourished, well-developed, appears stated age. Level of distress, comfortable. PSYCHIATRIC: Mental status, alert, normal affect. Orientation, oriented to time, place and person. EYES: Lids and conjunctiva, noninjected. No discharge, no pallor. ENT: Lips, teeth, gums, normal dentition. Oropharynx, no cyanosis, no pallor. NECK: Carotid arteries, bilateral normal upstroke, no bruits, no thrills. JUGULAR VEINS: No jugular venous pressure or distention. CERVICAL LYMPH NODES: Nontender, nonenlarged. THYROID: Not enlarged. Nontender. No nodules. LUNGS: Respiratory effort, unlabored. CHEST: Normal curvature. No thoracic deformity. No chest wall tenderness. Percussion, resonant. Auscultation, clear. No wheezes, no rales, no rhonchi. CARDIOVASCULAR: Precordial exam, nondisplaced. No heaves or pericardial thrills. Rate and rhythm, regular. Heart sounds, normal S1, normal S2. No S3, no gallop, no rub. Systolic murmur, not heard. Diastolic murmur, not heard. EXTREMITIES: No cyanosis, no edema. Peripheral pulses, full and equal in all extremities, except as noted. No bruits appreciated. ABDOMEN: Soft, nondistended. Normal aorta. No bruit. Nontender. No masses. Liver, nontender, no hepatomegaly. Spleen, nontender, no splenomegaly. MUSCULOSKELETAL: No joint tenderness. No joint swelling. No erythema. NEUROLOGICAL: Normal gait, normal strength, normal tone. SKIN: Warm and dry. OVERALL IMPRESSION: Continued atrial fibrillation. At this time, she was started on sotalol. We will increase the sotalol to give rate control as well as give her digoxin and heparin drip. Plan to proceed with aortofemoral runoff in the a.m. TRANSINT:[id number] Voice Confirmation ID: [id number] DOCUMENT ID: [id number] HISTORY AND PHYSICAL [id number] CLARENCE OAKES JEFFREY MD CC: [id number] DICTATION DATE: 10/11/18 1505 REGIONAL MEDICAL DIRECTOR: 10/11/18 [id number] [place] [address]
--- NOTE | ~2018-10-11 | OP ---
PATIENT NAME: CLARENCE OAKES MEDICAL RECORD: [id number] :43 LOCATION:D.M2 D.2120 ADMISSION DATE:10/11/18 SURGEON: LILIA DINH MD DATE OF OPERATION: 10/12/2018 PROCEDURES: 1. Laser atherectomy, left peroneal. 2. SIMULATION ENGINEER, left peroneal. 3. Aortofemoral runoff. 4. Abdominal aortography. INDICATION: Limb threatening ischemia, left lower extremity. PROCEDURE IN DETAIL: After informed consent was obtained and after a detailed description of risks, benefits as well as alternative therapies, the patient elected to proceed with angiogram and angioplasty. The right femoral area was prepped and draped in normal sterile fashion. Right femoral artery was cannulated via modified Seldinger technique with placement of 6-Malaysian sheath. All catheters exchanged through this sheath. FINDINGS: Abdominal aortography was performed. The catheter was pulled down for aortofemoral runoff. Abdominal aortography reveals no significant abdominal aortic disease, no dissection or aneurysmal formation. RIGHT LEG: A. Iliac: The common internal and external iliacs have moderate irregularities, but no flow-limiting stenosis. B. Femoral system: The common superficial and deep femoral have mild irregularities, but no flow-limiting stenosis. C. Popliteal and infrapopliteal vessels: Popliteal is widely patent. Anterior tibial is totally occluded. There is 2-vessel runoff through the peroneal and posterior tibial, although they are moderate to severely diffusely diseased. LEFT LEG: A. Iliac: The common internal and external iliacs have moderate irregularities, but no flow-limiting stenosis. B. Femoral system: The common superficial and deep femoral have moderate irregularities, but no flow-limiting stenosis. C. Infrapopliteal vessels: The popliteal is widely patent. Posterior tibial and anterior tibial is totally occluded. There is single-vessel runoff through the peroneal. It has 95% stenosis at the ostium. LASER ATHERECTOMY OF THE PERONEAL: We made laser atherectomy passes with a 0.9 catheter going at 80/40. Multiple passes were made. We ballooned this with a 3-0 balloon. Result was 0% residual stenosis with episcopal of brisk distal flow. OVERALL IMPRESSION: Successful SIMULATION ENGINEER laser atherectomy of the peroneal going from 95% initial stenosis on the left leg to 0% residual. TRANSINT:[id number] Voice Confirmation ID: [id number] DOCUMENT ID: [id number] OPERATIVE REPORT [id number] CLARENCE OAKES JEFFREY MD CC: [id number] DICTATION DATE: 10/12/18 1051 TIER IN: 10/12/18 1145 ADM IN [facility] [address] [id number]
[~2018-10-11 13:29] MED LIST changes: +HYDROCODON-ACET15 ML PO; +VITAMIN D250000 UNIT PO
[2018-10-11 14:33] LABS: BASOPHILS 0.2 % (0-2); EOSINOPHILS 0.4 % (0-7); HEMATOCRIT 35.6 % (36.0-48.0); HEMOGLOBIN 11.8 g/dL (12-16); IMMATURE GRANULOCYTES 0.2 % (0-5); LYMPHOCYTES 10.6 % (15-50); MCH 32.2 pg (26.0-34.0); MCHC 33.1 g/dL (31.0-37.0); MCV 97.3 fL (80.0-100.0); MEAN PLATELET VOLUME 11.3 fL (7.4-10.4); MONOCYTES 6.6 % (2-11); PLATELET COUNT 260 10x3/uL (130-400); RBC 3.66 10x6/uL (4.00-5.40); RDW 13.9 % (11.5-14.5); WBC 8.4 10x3/uL (4.8-10.8)
[2018-10-11 14:53] LABS: ALBUMIN 3.4 g/dL (3.4-5.0); ALKALINE PHOSPHATASE 69 U/L (46-116); ALT (SGPT) 19 U/L (10-68); BILIRUBIN - TOTAL 0.34 mg/dL (0.2-1.3); CALC OSMOLALITY 270 mosm/kg (275-300); CARBON DIOXIDE 23.8 mmol/L (21.0-32.0); CHLORIDE - SERUM 99 mmol/L (98-107); CREATININE - SERUM 1.2 mg/dL (0.6-1.3); GLUCOSE 91 mg/dL (74-106); POTASSIUM - SERUM 3.1 mmol/L (3.5-5.1); SODIUM 134 mmol/L (136-145); UREA NITROGEN 20 mg/dL (7-18); eGFR NON AFRICAN AMERICAN 47 mL/min (90-120)
[2018-10-11 15:09] LABS: CKMB 1.5 U/L (0.0-3.6); CREATINE KINASE 53 UL (21-215)
[2018-10-11 15:13] LABS: TROPONIN-I 1.142 ng/mL (0.000-0.060)
[2018-10-12 08:49] VITALS: BP 154/62
[2018-10-12 16:16] VITALS: BP 165/80
[2018-10-12 20:58] VITALS: BP 161/66
[2018-10-13 00:56] VITALS: BP 129/66
[2018-10-13 04:00] VITALS: BP 151/98
[2018-10-13] MEDS ORDERED: XARELTO15 MG PO (08:23)
[2018-10-13] MEDS ORDERED: BETAPACE 120 M120 MG PO (08:23)
[2018-10-13 09:12] VITALS: BP 158/70
== END 2018-10-13 11:23 | disposition home or self-care (01) ==
LOC: D.ER 13:29 → D.M2 15:22 → OBSVTIME 15:22 → D.M2 22:15
PROVIDERS: Emergency Medicine; ADMIT Internal Medicine Interventional Cardiology; ATTEND Internal Medicine Interventional Cardiology
DX: I74.3 Embolism and thrombosis of arteries of the lower extremities (principal); I25.10 Atherosclerotic heart disease of native coronary artery without angina pectoris; I48.91 Unspecified atrial fibrillation; I73.9 Peripheral vascular disease, unspecified; I10 Essential (primary) hypertension

== ENCOUNTER → 2018-12-07 09:12 | Outpatient (CLI) | payer MEDICARE, BC ==
[2018-10-11 13:44] VITALS: BMI 19.3
[~2018-12-07 09:12] MED LIST changes: +BETAPACE 120 M120 MG PO; +XARELTO15 MG PO
== END | disposition home or self-care (01) ==
LOC: D.NM 09:12
PROVIDERS: ATTEND Family Medicine
DX: R07.81 Pleurodynia (principal)

== ENCOUNTER 2018-12-07 14:29 | Emergency (ER) | payer MEDICARE, BC ==
[~2018-12-07] VITALS: Ht 152.4 cm; Wt 47.3 kg
[2018-12-07 14:37] VITALS: BP 177/103; Ht 152.4 cm; Wt 47.3 kg
== END 2018-12-07 15:43 | disposition left against medical advice (07) ==
LOC: D.ER 14:29
DX: M79.672 Pain in left foot (principal)

== ENCOUNTER → 2018-12-17 11:07 | Outpatient (CLI) | payer MEDICARE, BC ==
[2018-12-07 14:37] VITALS: BMI 20.3
== END | disposition home or self-care (01) ==
LOC: D.US 11:07
PROVIDERS: ATTEND Internal Medicine Cardiovascular Disease
DX: I65.23 Occlusion and stenosis of bilateral carotid arteries (principal)

== ENCOUNTER → 2019-01-16 13:03 | Outpatient (CLI) | payer MEDICARE, BC ==
[2018-12-07 14:37] VITALS: BMI 20.3
== END | disposition home or self-care (01) ==
LOC: D.RT 13:00
PROVIDERS: ATTEND Internal Medicine Pulmonary Disease
DX: J44.9 Chronic obstructive pulmonary disease, unspecified (principal); R06.00 Dyspnea, unspecified

== ENCOUNTER → 2019-03-25 14:22 | Outpatient (CLI) | payer MEDICARE, BC ==
[2018-12-07 14:37] VITALS: BMI 20.3
--- NOTE | 2019-04-04 13:30 | EC ---
PATIENT:CLARENCE OAKES DATE OF SERVICE: 03/25/19 SEX: F MEDICAL RECORD: [id number] DATE OF : 43 LOCATION:[facility] AGE OF PATIENT: 73 ADMISSION DATE: 03/25/19 REFERRING PHYSICIAN: INTERPRETING PHYSICIAN: LILIA KRAUSE MD ECHOCARDIOGRAM REPORT ECHO CHARGES 4 ECHO COMPLETE Date: 03/25/19 CLINICAL DIAGNOSIS: H/O CAD/PVD/A-FIB ECHOCARDIOGRAPHIC MEASUREMENTS (adult normal given) AC root (d.<3.7cm) 2.8 cm LV Septum d (<1.2 cm> 1.1 cm Valve Excursion 1.5 cm LV Septum (systole) 1.5 cm Left Atria (s.<4.0cm> 4.9 cm LVPW d(<1.2cm) 1.1 cm RV (d.<2.3cm) 2.5 cm LVPW (sytole) 1.9 cm LV diastole(<5.6CM) 4.5 cm MV E-F(>70mm/sec) cm LV systole 2.2 cm LVOT Diameter 1.5 cm MV exc.(>10mm) cm Est.ejection fraction (50-75%) % DOPPLER: LVIT cm/sec A 55.0 cm/sec E 138 cm/sec LA cm/sec RVSP 75.2 mmHg LVOT 106 cm/sec AOP1/2T m/s Asc. Ao 155 cm/sec RVOT 52.0 cm/sec RA cm/sec PA 94.0 cm/sec AV Gradient Peak 9.7 mmHg AV Mean 4.9 mmHg AV Area 1.6 cm MV Gradient Peak 8.6 mmHg MV Mean 2.4 mmHg MV Area 2.0 cm COMMENTS: OP - HC Cleaning Professional: 1 SILKE YONKERS Tourist Escort: 1 Dr. Krause TAPE# PACS Pericardial Effusion N DATE OF SERVICE: PROCEDURE: Echocardiogram. FINDINGS: 1. Left ventricular chamber size is within normal limits. Left ventricular systolic function is normal at 55%. 2. Left atrium is enlarged at 4.9 cm. Right atrium and right ventricular chamber sizes are as well mildly dilated. 3. Valvular structures have normal structure and motion. ECHOCARDIOGRAM REPORT [id number] CLARENCE OAKES 4. Doppler interrogation reveals moderate mitral regurgitation, severe tricuspid regurgitation, no other valvular insufficiency or stenosis. 5. No evidence of pericardial effusion or left ventricular thrombus. TRANSINT:[id number] Voice Confirmation ID: [id number] DOCUMENT ID: [id number] LILIA KRAUSE MD at 1330 CC: [id number] DICTATION DATE: 03/26/19 1803 FLUTE GRINDER: 03/27/19 0152 DEP CLI 03/25/19 [id number] [id number]
== END | disposition home or self-care (01) ==
LOC: D.HCCECHO 14:22
PROVIDERS: ATTEND Internal Medicine Interventional Cardiology
DX: I25.10 Atherosclerotic heart disease of native coronary artery without angina pectoris (principal)

== ENCOUNTER → 2019-04-10 14:09 | Outpatient (CLI) | payer MEDICARE, BC ==
[2018-12-07 14:37] VITALS: BMI 20.3
== END | disposition home or self-care (01) ==
LOC: D.US 14:09
PROVIDERS: ATTEND Internal Medicine Cardiovascular Disease
DX: R22.43 Localized swelling, mass and lump, lower limb, bilateral (principal)

== ENCOUNTER → 2019-05-27 07:23 | Outpatient (CLI) | payer MEDICARE, BC ==
[2018-12-07 14:37] VITALS: BMI 20.3
== END | disposition home or self-care (01) ==
LOC: D.US 07:23
PROVIDERS: ATTEND Family Medicine
DX: R10.10 Upper abdominal pain, unspecified (principal); R74.8 Abnormal levels of other serum enzymes

== ENCOUNTER → 2019-06-28 12:26 | Outpatient (CLI) | payer MEDICARE, BC ==
[2018-12-07 14:37] VITALS: BMI 20.3
[2019-06-28 13:16] LABS: HEMATOCRIT 35.5 % (36.0-48.0); HEMOGLOBIN 11.6 g/dL (12-16); MCH 36.7 pg (26.0-34.0); MCHC 32.7 g/dL (31.0-37.0); MCV 112.3 fL (80.0-100.0); MEAN PLATELET VOLUME 11.7 fL (7.4-10.4); RBC 3.16 10x6/uL (4.00-5.40); RDW 13.3 % (11.5-14.5); WBC 6.3 10x3/uL (4.8-10.8)
[2019-06-28 13:24] LABS: ANION GAP 13.8 mmol/L (8-16); CARBON DIOXIDE 26.1 mmol/L (21.0-32.0); CREATININE - SERUM 1.4 mg/dL (0.6-1.3); POTASSIUM - SERUM 3.9 mmol/L (3.5-5.1)
== END | disposition home or self-care (01) ==
LOC: D.LAB 11:30
PROVIDERS: ATTEND Internal Medicine Cardiovascular Disease
DX: D64.9 Anemia, unspecified (principal); E63.1 Imbalance of constituents of food intake

== ENCOUNTER → 2019-12-10 10:56 | Outpatient (CLI) | payer MEDICARE, BC ==
[2018-12-07 14:37] VITALS: BMI 20.3
[2019-12-10 11:52] LABS: ANION GAP 10.8 mmol/L (8-16); CALCIUM 8.4 mg/dL (8.5-10.1); CARBON DIOXIDE 28.1 mmol/L (21.0-32.0); CREATININE - SERUM 1.3 mg/dL (0.6-1.3); POTASSIUM - SERUM 3.9 mmol/L (3.5-5.1)
== END | disposition home or self-care (01) ==
LOC: D.LAB 10-03 11:00
PROVIDERS: ATTEND Internal Medicine Cardiovascular Disease
DX: E87.8 Other disorders of electrolyte and fluid balance, not elsewhere classified (principal)